=== PATIENT | female | born 1965 | race Caucasian/White ===

== ENCOUNTER 2022-03-29 17:35 | Emergency (ER) | payer BC, SELFPAY ==
[2022-03-29 18:09] VITALS: BP 154/76; PULSE 82; RESP 18; TEMP 37.2; O2SAT 98; BMI 42.2
== END 2022-03-29 21:05 | disposition left against medical advice (07) ==
PROVIDERS: Emergency Provider Emergency Medicine; PCP Nurse Practitioner Family
DX: U07.1 COVID-19 (principal); R05.9 Cough, unspecified; R51.9 Headache, unspecified
CPT/HCPCS: 99281; 99282